=== PATIENT | female | born 1960 | race Caucasian/White ===

== ENCOUNTER → 2017-10-07 | Outpatient (CLI) | payer OTHER ==
[~2017-10-07] MED LIST: HEPARIN for IV BOLUS 10,000 UNIT/10 ML VIAL.; IOHEXOL 240 MG/ML 50ML VIAL.; LIDOCAINE 2%/EPI 1:100,000 20 ML VIAL.; MIDAZOLAM HCL/PF 2 MG/2 ML VIAL.; VANCOMYCIN 1GM IVPB FOR OMNI 250 ML; fentaNYL PF VIAL 100 MCG/2 ML VIAL
[2017-10-07 11:12] LABS: ADD MAN DIFF? NO
[2017-10-07 11:23] LABS: BASO % 0 % (0-3); EOS % 0 % (0-3); HEMATOCRIT 41.2 % (36.0-47.0); HEMOGLOBIN 12.8 g/dL (12.0-15.5); LYMPH # 0.9 x10^3/uL (1.0-4.8); LYMPH % 11 % (24-48); MEAN CORPUSCULAR HEMOGLOBIN 33 pg (25-35); MEAN CORPUSCULAR HGB CONC 31 g/dL (31-37); MEAN CORPUSCULAR VOLUME 105 fL (79-100); MONO # 0.3 x10^3/uL (0.0-1.1); MONO % 4 % (0-9); NEUT # 6.6 x10^3uL (1.8-7.7); NEUT % 85 % (31-73); PLATELET COUNT 208 x10^3/uL (140-400); RED BLOOD COUNT 3.94 x10^6/uL (3.50-5.40); RED CELL DISTRIBUTION WIDTH 14.8 % (11.5-14.5); WHITE BLOOD COUNT 7.8 x10^3/uL (4.0-11.0)
[2017-10-07 11:31] LABS: ANION GAP 11 (6-14); BLOOD UREA NITROGEN 48 mg/dL (7-20); BUN/CREATININE RATIO 15 (6-20); CALCIUM 9.4 mg/dL (8.5-10.1); CARBON DIOXIDE 29 mmol/L (21-32); CHLORIDE 98 mmol/L (98-107); CREATININE 3.1 mg/dL (0.6-1.0); GFR 15.5; GLUCOSE 103 mg/dL (70-99); SODIUM 138 mmol/L (136-145)
[2017-10-07 11:34] LABS: ALBUMIN 3.2 g/dL (3.4-5.0); ALBUMIN/GLOBULIN RATIO 0.6 (1.0-1.7); ALK PHOS 106 U/L (46-116); ALT (SGPT) 61 U/L (14-59); AST (SGOT) 22 U/L (15-37); TOTAL BILIRUBIN 0.3 mg/dL (0.2-1.0); TOTAL PROTEIN 8.2 g/dL (6.4-8.2)
[2017-10-07 11:48] LABS: INR 0.9 (0.8-1.1)
[2017-10-07] MEDS: IOHEXOL 240 MG/ML 50ML VIAL. IV (13:55)
[2017-10-07] MEDS: MIDAZOLAM HCL/PF 2 MG/2 ML VIAL. IV (13:56)
[2017-10-07] MEDS: fentaNYL PF VIAL 100 MCG/2 ML VIAL IV (13:57)
[2017-10-07] MEDS: VANCOMYCIN 1GM IVPB FOR OMNI 250 ML IV (13:58)
[2017-10-07] MEDS: LIDOCAINE 2%/EPI 1:100,000 20 ML VIAL. IJ (14:01)
== END | disposition home or self-care (01) ==
LOC: INTRAD 10:38
DX: I12.0 Hypertensive chronic kidney disease with stage 5 chronic kidney disease or end stage renal disease (principal); N18.6 End stage renal disease; J44.9 Chronic obstructive pulmonary disease, unspecified; I12.9 Hypertensive chronic kidney disease with stage 1 through stage 4 chronic kidney disease, or unspecified chronic kidney disease; N18.9 Chronic kidney disease, unspecified; Z87.39 Personal history of other diseases of the musculoskeletal system and connective tissue; F32.9 Major depressive disorder, single episode, unspecified; F17.200 Nicotine dependence, unspecified, uncomplicated; D64.9 Anemia, unspecified; Z88.6 Allergy status to analgesic agent; Z72.89 Other problems related to lifestyle; Z99.2 Dependence on renal dialysis; Z86.69 Personal history of other diseases of the nervous system and sense organs; Z86.73 Personal history of transient ischemic attack (TIA), and cerebral infarction without residual deficits; Z91.040 Latex allergy status; Z88.0 Allergy status to penicillin; Z91.048 Other nonmedicinal substance allergy status; Z86.718 Personal history of other venous thrombosis and embolism
CPT/HCPCS: 36415; 36558; 76937; 77001; 80053; 85025; 85610; 99152; 99153; A4215; C1750; C1892; J2250; J3010; J3370; J3490; Q9966